=== PATIENT | female | born 1990 | race Hispanic/Latino ===

== ENCOUNTER → 2025-10-01 | Outpatient (CLI) | payer SELFPAY ==
--- NOTE | 2025-10-01 13:20 | US_ITS ---
PROCEDURE: OB LIMITED WITH BIOMETRICS 10/01/2025 REASON FOR EXAM: 37 WEEKS GESTATION OF TECHNIQUE: Procedure Code: [id number] Modality: US Procedure: OB LIMITED WITH BIOMETRICS COMPARISON: None available for review. FINDINGS number: 1 Position: cephalic Placental Position: Anterior left lateral Placental Grade: 2 DIMENSIONS: Biparietal Diameter: 8.7 cm / 35 weeks and 1 day Head Circumference: 32.6 cm / 36 weeks and 6 days Abdominal Circumference: 35 cm / 38 weeks and 6 days Femur Length: 7.1 cm / 36 weeks and 2 days ESTIMATED WEIGHT: 3286 grams ESTIMATED WEIGHT PERCENTILE (24+ weeks): 52nd ESTIMATED GESTATIONAL AGE: Baseline: 38 weeks and 1 day By Ultrasound: 36 weeks and 5 days ESTIMATED DATE OF DELIVERY: Baseline: October 14, 2025 By Ultrasound: October 24, 2025 BIOPHYSICAL ASSESSMENT: Amniotic Fluid Volume: adequate Amniotic Fluid Index: 10.1 cm (8-24 cm normal range) Cardiac Motion: 145 beats per minute (average) US/OB Limited With Biometrics IMPRESSION: 1. Single living intrauterine gestation at 38 weeks and 1 day in the cephalic presentation. 2. heart rate of 145 bpm. 3. Anterior, left lateral placenta. 4. Estimated weight of 3286 grams, 52nd percentile. Reading Location: [id number]
== END | disposition home or self-care (01) ==
PROVIDERS: Referring Provider Obstetrics & Gynecology; Visit Provider Obstetrics & Gynecology
DX: O24.410 Gestational diabetes mellitus in pregnancy, diet controlled (principal); O09.93 Supervision of high risk pregnancy, unspecified, third trimester; Z3A.37 37 weeks gestation of pregnancy
CPT/HCPCS: 76816

== ENCOUNTER 2025-10-16 15:05 | Inpatient (IN) | payer SELFPAY ==
[2025-10-16] VITALS (40 sets, daily range): BP systolic 111–246; BP diastolic 62–123; PULSE 73–179; RESP 16–18; TEMP 36.4–36.8; O2SAT 87–100; BMI 31.4
[2025-10-16] MEDS: Lactated Ringers 1,000 ML 50 ML IV (16:00)
[2025-10-16 16:19] LABS: Hematocrit 32.0 % (37-47); Hemoglobin 11.1 g/dL (12.0-15.0); Immature Granulocytes Count 0.040 X10^3/uL (0.0-0.0); Mean Corp Hgb Conc 34.7 g/dL (32-36); Mean Corpuscular Volume 83.6 fL (81-99); Mean Platelet Vol. 11.7 fl (6.2-12.0); NRBC Flagged by Analyzer 0 % (0-5); Platelet Count 187 K/mm3 (150-450); RBC Distribution Width CV 15.5 % (11.6-14.6); RBC Distribution Width SD 47.2 fl (35.1-43.9); Red Blood Count 3.83 M/mm3 (4.2-5.4); White Blood Count 8.3 K/mm3 (4.4-11.0)
--- NOTE | 2025-10-16 16:37 | HP.PCM.OB_ITS ---
HPI - General General Date of Admission: 10/16/25 HPI Narrative EMILI MOE, is a 35 F @ 40.2 weeks with h/o GDMA1- uncontrolled here for IOL. pt was scheduled for IOL earlier this week however was not comfortable at that time. pt has agreed today to proceed. [facility] Medical History (Updated 10/16/25 @ 16:[address] Es Yoder MD) Gestational diabetes Home Medications ?Medication ?Instructions ?Recorded ?Last Taken ?Type ferrous sulfate 325 mg (65 mg 325 mg PO QODAY anemia 1 12/17/24 10/15/25 History iron) tablet Allergy/AdvReac Type Severity Reaction Status Date / Time No Known Allergies Allergy Verified 10/16/25 15:53 Surgical History (Updated 10/16/25 @ 16:35 by Sanjeev Kim) History of surgery Social History Smoking Status: Never smoker History Elective abortions Hx Para 0 Spontaneous abortions Hx # Term Pregnancies Ectopic pregnancies Hx # Pregnancies Multiple births # of living children NST FHR Rate Baby A Baseline: 140 Variability:: Moderate Accelerations:: 15 x 15 Decelerations:: None NST Reactive:: Yes FHR Category:: Category I Uterine Activity:: irregular Vital Signs Vital Signs Vital Signs: Weight Weight: 65.771 kg Body Mass Index (BMI) 31.4 PRE- weight 57.606 kg PRE- Body Mass Index 27.3 (BMI) Physical Exam Narrative VE: 3.5cm/70/-2 AROM performed scant fluid Const alert and oriented x3 General Appearance: cooperative HEENT normocephalic GI GI Narrative: Gravid, non tender to palpation. OB / External & Speculum: external exam normal Extremity normal to inspection Skin no rashes or lesions noted Neuro oriented x3 and CN's II-XII intact bilaterally Psych Appearance: grossly normal Labs Labs Labs: Blood Type Pending Antibody Screen Pending Hct, (37-47) 32.0 % L Hgb, (12.0-15.0) 11.1 g/dL L Obstetrics Ultrasound Syphilis Total Ab Pending Assessment & Plan (1) 40 weeks gestation of : (2) Language barrier: (3) AMA (advanced maternal age) primigravida 35+: (4) Late care: (5) Anemia affecting : PLAN: Plan Admit to L&D Monitor FHR/TOCO Epidural if requested for pain Monitor VS Anticipate AROM will start pitocin monitor Blood sugar EFW <4500g
[2025-10-16 16:58] LABS: Syphilis Antibodies Nonreactive (Nonreactive)
[2025-10-16] MEDS: Oxytocin 15 Units/NS 250ml 15 UNITS/250 ML IV.SOLN 2 UNITS IV (17:01)
[2025-10-16] MEDS: Lactated Ringers 1,000 ML 999 ML IV (20:25)
[2025-10-16] MEDS: fentaNYL-bupivacaine (epidural) 100 ML BAG EPIDURAL (22:15)
[2025-10-17] VITALS (15 sets, daily range): BP systolic 93–124; BP diastolic 51–79; PULSE 80–106; RESP 14–16; TEMP 36.6–38; O2SAT 98
[2025-10-17] MEDS: Oxytocin 15 Units/NS 250ml 15 UNITS/250 ML IV.SOLN 334 UNITS IV (01:25)
[2025-10-17] MEDS: Oxytocin 15 Units/NS 250ml 15 UNITS/250 ML IV.SOLN 83 UNITS IV (01:56)
--- NOTE | 2025-10-17 02:05 | EX.PCM.OBVAG ---
Maternal Data Information Gestational age: 40 Vaginal Delivery Maternal Presentation Maternal Presentation: Medically Indicated Induction Type of Induction: Pitocin and Amniotomy Medical Reason for Induction: Maternal Medical Condition: list: (GDMA1 uncontrolled, AMA, 40 weeks,) Vaginal Delivery Information Procedure Performed: Spontaneous Vaginal Delivery and Shoulder Dystocia Maneuvers Delivery maneuver performed for shoulder dystocia: Eugenio maneuver and Suprapubic pressure Head to body interval: 00:40 Surgeon/Practitioner: Es Yoder Date of Procedure: 10/17/25 Pre-Procedure Diagnosis: GDMA1- uncontrolled, AMA, 40 weeks Post-Procedure Diagnosis: same, live male infant Type of anesthesia: Epidural Estimated Blood Loss: 300 Time of Delivery: 01:21 Findings Description of procedure: Patient progressed to fully dilated. The head delivered with no delivery of the anterior shoulder at this time staff was called Eugenio maneuver was performed followed by suprapubic at that point the anterior shoulder was then delivered followed by the rest the 's body. During delivery I was careful to not place extra traction -the was then placed on the mother's chest where it was stimulated. Approximately 30 seconds of delayed cord clamping was performed. At this time Pitocin was started placenta was then delivered intact without complication. Cord gases were obtained. Multiple first-degree vaginal lacerations that were bleeding were appreciated. 3-0 Vicryl in the 2-0 Vicryl were used to try to achieve hemostasis. Cervix was evaluated no lacerations. The uterus was explored small amount of membranes were removed. However bleeding persisted at this time after multiple attempts to stop the bleeding did slow decision was made to place hemoblast and Kerlix packing in the vagina for pressure. Bladder was drained prior to this procedure. Kerlix will stay in overnight be removed in the morning. Presentation: Vertex Amniotic Membrane Rupture Type: Artificial Amniotic Fluid Description: Clear (Fluid was clear at time of artificial rupture membranes) and Other (Terminal meconium ) Placental Delivery Description: Expressed Placenta Disposition: [facility] Specimen collected: No Cord Vessel Description: 3 Vessels Cord Entanglement: None Cord Gases: ABG and VBG A Gender: Male (1 minute): 8 (5 minute): 9 Delayed Cord Clamping: Yes Life Enrichment Director director food and beverage: No
[2025-10-17 06:11] LABS: Hematocrit 28.9 % (37-47); Hemoglobin 9.8 g/dL (12.0-15.0); Immature Granulocytes Count 0.090 X10^3/uL (0.0-0.0); Mean Corp Hgb Conc 33.9 g/dL (32-36); Mean Corpuscular Volume 85.3 fL (81-99); Mean Platelet Vol. 11.5 fl (6.2-12.0); NRBC Flagged by Analyzer 0 % (0-5); Platelet Count 172 K/mm3 (150-450); RBC Distribution Width CV 15.5 % (11.6-14.6); RBC Distribution Width SD 47.7 fl (35.1-43.9); Red Blood Count 3.39 M/mm3 (4.2-5.4); White Blood Count 15.6 K/mm3 (4.4-11.0)
--- NOTE | 2025-10-17 08:35 | PN.OBGYN_ITS ---
Subjective Subjective Packing removed. Moderate blood on packing. Minimal pain. Objective Data Objective Data Vital Signs: Vital Signs Temp Pulse Resp BP Pulse Ox 98.5 F 80 16 108/73 90 10/17/25 02:08 10/17/25 03:23 10/17/25 02:08 10/17/25 08:17 10/16/25 23:31 Weight: 65.771 kg Body Mass Index (BMI) 31.4 Intake & Output: Intake and Output for Last 24 Hours 10/15/25 10/16/25 10/17/25 23:59 23:59 23:59 Intake Total 1231.13 / 1231.13 1561.27 / 1561.27 Output Total 550 / 550 Balance 1231.13 / 1231.13 1011.27 / 1011.27 Lab / Micro Data 10/17/25 06:00 Labs: Laboratory Results - last 24 hr 10/16/25 16:00: WBC 8.3, RBC 3.83 L, Hgb 11.1 L, Hct 32.0 L, MCV 83.6, MCH 29.0, MCHC 34.7, RDW Std Deviation 47.2 H, RDW Coeff of [place] 15.5 H, Plt Count 187, MPV 11.7, Immature Gran % (Auto) 0.500, Neut % (Auto) 73.0 H, Lymph % (Auto) 18.4 L, [place] % (Auto) 7.7, Eos % (Auto) 0.2, Baso % (Auto) 0.2, Absolute Neuts (auto) 6.0, Absolute Lymphs (auto) 1.52, Nucleated RBC % 0, Syphilis Total Ab Nonreactive, Blood Type O POSITIVE, Antibody Screen NEGATIVE 10/16/25 16:46: POC Glucose 83 10/16/25 17:47: POC Glucose 79 10/16/25 22:36: POC Glucose 114 H 10/16/25 23:53: POC Glucose 111 H 10/17/25 00:40: POC Glucose 115 H 10/17/25 02:26: POC Glucose 119 H 10/17/25 06:00: WBC 15.6 H, RBC 3.39 L, Hgb 9.8 L, Hct 28.9 L, MCV 85.3, MCH 28.9, MCHC 33.9, RDW Std Deviation 47.7 H, RDW Coeff of [place] 15.5 H, Plt Count 172, MPV 11.5, Immature Gran % (Auto) 0.600, Neut % (Auto) 79.7 H, Lymph % (Auto) 10.9 L, [place] % (Auto) 8.7, Eos % (Auto) 0.0, Baso % (Auto) 0.1, Absolute Neuts (auto) 12.5 H, Absolute Lymphs (auto) 1.71, Nucleated RBC % 0 Assessment & Plan (1) (spontaneous vaginal delivery): (2) AMA (advanced maternal age) primigravida 35+: (3) Late care: (4) Anemia affecting : (5) Gestational diabetes: PLAN: Plan Routine care
[2025-10-18 00:14] VITALS: BP 98/60; PULSE 98; RESP 16; TEMP 36.4; O2SAT 98
[2025-10-18 04:10] VITALS: BP 104/70; PULSE 85; RESP 16; TEMP 36.1; O2SAT 100
[2025-10-18 08:17] VITALS: BP 94/69; PULSE 90; RESP 16; TEMP 36.4
--- NOTE | 2025-10-18 10:55 | CASEMGMT ---
Social Work Date of referral: 10/18/25 Reason for referral: Transportation Resources requested Referred by: nurse Patient provided consent to social work visit. When manager social media arrived, patient was alone and baby was sleeping in the crib by patient's hospital bed. Hospital Chief Financial Officer utilized felicia fox, educational interpreter [phone] (Gabriella). Hospital Chief Financial Officer provided an ample amount of transportation services for patient and also a handout for the [facility] for a immigration case manager who may be able to see if patient can qualify for Medicaid. Some, but not all of the resources provided included Von, A full list of [facility] transportation services, [facility], and [facility] transportation services. Hospital Chief Financial Officer completed the Social Determinants of Health Assessment with patient. No other questions/concerns/needs identified at this time. Ioana oGins, CONSTRUCTION PROJECT ENGINEER, INSECTICIDE MAKER
--- NOTE | 2025-10-18 11:10 | PN.OBGYN_ITS ---
Subjective Subjective Doing well. Ambulating and voiding without difficulty. Mild lochia. Breast feeding. Objective Data Objective Data Vital Signs: Vital Signs Temp Pulse Resp BP Pulse Ox O2 Del Method 97.6 F L 90 16 94/69 100 Room Air 10/18/25 08:17 10/18/25 08:17 10/18/25 08:17 10/18/25 08:17 10/18/25 04:10 10/18/25 08:17 Oxygen Delivery Method Room Air Weight: 65.771 kg Body Mass Index (BMI) 31.4 Intake & Output: Intake and Output for Last 24 Hours 10/16/25 10/17/25 10/18/25 23:59 23:59 23:59 Intake Total 1231.13 / 1231.13 1561.27 / 1561.27 Output Total 1450 / 1450 Balance 1231.13 / 1231.13 111.27 / 111.27 Lab / Micro Data 10/17/25 06:00 Labs: Laboratory Results - last 24 hr 10/18/25 06:08: POC Glucose 81 ROS Constitutional Constitutional: Denies headache(s) Cardiovascular Cardiovascular: Denies chest pain or dyspnea Gastrointestinal Gastrointestinal: Denies nausea or vomiting Genitourinary Genitourinary: Denies dysuria Physical Exam Const alert, oriented x3 and no apparent distress General Appearance: cooperative and comfortable Eyes PERRL and EOMs intact bilaterally Resp normal respiratory effort GI soft to palpation and non-tender Narrative: Fundus firm, below umbilicus. Uterus Palpation: uterus fundus firm ( below umbilicus) Extremity normal to inspection and full ROM Neuro oriented x3 and CN's II-XII intact bilaterally Psych mental status grossly normal Assessment & Plan (1) (spontaneous vaginal delivery): (2) Anemia affecting : QUALIFIERS: Trimester: third trimester Qualified Code(s): O99.013 - Anemia complicating , third trimester (3) Late care: (4) AMA (advanced maternal age) primigravida 35+: QUALIFIERS: Trimester: third trimester Qualified Code(s): O09.513 - Supervision of elderly primigravida, third trimester (5) Gestational diabetes: QUALIFIERS: Gestational diabetes mellitus control: unspecified T rimester: third trimester Qualified Code(s): O24.419 - Gestational diabetes mellitus in , unspecified control PLAN: Plan Discharge home
--- NOTE | 2025-10-18 11:11 | PCM.DC.SUM ---
Providers Date of Admission: 10/16/25 Date of Discharge: 10/18/25 Primary Care Physician: No Primary Care Phys Reason For Visit: SCHEDULED INDUSTION Diagnosis Discharge Diagnosis (1) (spontaneous vaginal delivery): Status: Acute Code(s): O80 - Encounter for full-term uncomplicated delivery (2) Anemia affecting : Status: Acute Code(s): O99.019 - Anemia complicating , unspecified trimester Qualifiers: Trimester: third trimester Qualified Code(s): O99.013 - Anemia complicating , third trimester (3) Late care: Status: Acute Code(s): O09.30 - Supervision of with insufficient care, unspecified trimester (4) AMA (advanced maternal age) primigravida 35+: Status: Acute Code(s): O09.519 - Supervision of elderly primigravida, unspecified trimester Qualifiers: Trimester: third trimester Qualified Code(s): O09.513 - Supervision of elderly primigravida, third trimester (5) Gestational diabetes: Status: Acute Code(s): O24.419 - Gestational diabetes mellitus in , unspecified control Qualifiers: Gestational diabetes mellitus control: unspecified Trimester: third trimester Qualified Code(s): O24.419 - Gestational diabetes mellitus in , unspecified control Plan Discharge home Hospital Course Operations None Procedures None Summary of Care Provided Minutes Spent on Discharge: 20 Hospital Course: induction of labor foe uncontrolled GDM Physical Exam Const alert and no apparent distress Narrative: Fundus firm, below umbilicus. Weight / BMI Weight Weight: 65.771 kg Body Mass Index (BMI) 31.4 PRE- weight 57.606 kg PRE- Body Mass Index 27.3 (BMI) ABG / Lab / Microbiology Data 10/17/25 06:00 Laboratory: Laboratory Results - last 24 hr 10/18/25 06:08: POC Glucose 81 D/C Instructions May resume sexual activity in: 6 weeks DC O2, CPAP, BIPAP Needs Home O2 Discharge instructions: No Please Follow Up With: Mary Carmen Thomas MD When: Follow up with our office in 1-2 and 6 weeks or as needed. [phone] Meaningful Use Info Meaningful Use Meaningful Use Diagnoses (Choose all that apply): None applicable Discharge Plan Admission Admit Date/Time: 10/16/25 15:05 Primary Reason for Your Visit: labor Attending Provider: Es Yoder Primary Care Provider: Care Physician,No Primary Discharge Orders/Prescriptions Prescriptions: Discontinued ferrous sulfate 325 mg (65 mg iron) tablet 325 mg PO QODAY Referrals / Follow Up: Care Physician,No Primary [Primary Care Provider, Medical] Disposition Disposition (needs filled in before D/C Order can be placed): Home, Self Care
[2025-10-18 14:25] VITALS: BP 112/78; PULSE 96; RESP 16
== END 2025-10-18 14:35 | disposition home or self-care (01) | DRG 806 ==
PROVIDERS: Admitting Provider Obstetrics & Gynecology; Referring Provider Advanced Practice Midwife; Visit Provider Obstetrics & Gynecology
DX: O24.420 Gestational diabetes mellitus in childbirth, diet controlled (principal); Z37.0 Single live birth; O71.4 Obstetric high vaginal laceration alone; O66.0 Obstructed labor due to shoulder dystocia; O77.0 Labor and delivery complicated by meconium in amniotic fluid; O99.02 Anemia complicating childbirth; Z3A.40 40 weeks gestation of pregnancy
CPT/HCPCS: 59025; 59050; 82962; 85025; 86780; 86850; 86900; 86901; 99221; G0378